=== PATIENT | male | born 1985 ===

== ENCOUNTER 2016-12-13 22:28 | Emergency (ER) | payer SELFPAY ==
--- NOTE | 2016-12-13 23:56 | C.PDOC ---
History Of Present Illness 31 year old male presents to the ED with complaints of developing a pruritic rash to his chest, back, and abdomen a few days ago. Patient states he took Amoxicillin 6 days ago for a sore throat which has since improved. He has no other medical problems and denies fever, cough, vomiting, diarrhea, SOB, chest pain, throat swelling, or any other complaints at this time. Time Seen by Provider: 12/13/16 23:33 Chief Complaint (Nursing): Allergic Reaction History Per: Patient History/Exam Limitations: no limitations Onset/Duration Of Symptoms: Days Current Symptoms Are (Timing): Still Present Severity: Mild Past Medical History Reviewed: Historical Data, Nursing Documentation, Vital Signs Vital Signs: Last Vital Signs Temp 97.7 F 12/14/16 00:22 Pulse 87 12/14/16 00:22 Resp 20 12/14/16 00:22 BP 133/70 12/14/16 00:22 Pulse Ox 99 12/14/16 00:22 - Medical History PMH: No Chronic Diseases Family History: States: Unknown Family Hx - Social History Hx Alcohol Use: Yes Hx Substance Use: No - Immunization History Hx Tetanus Toxoid Vaccination: No Hx Influenza Vaccination: No Hx Pneumococcal Vaccination: No Review Of Systems Except As Marked, All Systems Reviewed And Found Negative. Constitutional: Negative for: Fever, Chills ENT: Negative for: Throat Swelling Respiratory: Negative for: Cough, Shortness of Breath Gastrointestinal: Negative for: Nausea, Vomiting, Diarrhea Skin: Positive for: Rash Physical Exam - Physical Exam Appears: Non-toxic, No Acute Distress Skin: Warm, Dry, Rash (+Diffuse blanchable macular papular rash over the chest, abdomen, and back) Head: Atraumatic, Normacephalic Eye(s): bilateral: Normal Inspection Oral Mucosa: Moist Tongue: Normal Appearing, No Swelling Lips: Normal Appearing, No Swelling Throat: Normal, No Erythema, No Exudate, Other (+uvula midline) Neck: Supple Lymphatic: Other (+Tenderness to the anterior cervical lymphnodes) Chest: Symmetrical Cardiovascular: Rhythm Regular Respiratory: Normal Breath Sounds, No Accessory Muscle Use, No Rales, No Rhonchi , No Wheezing Extremity: Normal ROM Neurological/Psych: Oriented x3, Normal Speech, Normal Cognition ED Course And Treatment O2 Sat by Pulse Oximetry: 97 (Room air) Pulse Ox Interpretation: Normal Medical Decision Making Medical Decision Making: Differential Diagnosis: Allergic reaction vs Drug reaction due to Amoxicillin in setting mono. Contrary to triage, the rash is not petechial. Rx given and patient advised to follow up with his PMD or clinic and return to the ER if symptoms worsen. Disposition - Disposition Referrals: [facility] at [facility] [Outside] Disposition: HOME/ ROUTINE Disposition Time: 12:05 Condition: GOOD Additional Instructions: Please follow up with a primary doctor. The clinic number is provided. Take medication as needed for itching. Return to the ER for any worsening symptoms or for any other concerns. Prescriptions: DiphenhydrAMINE [Benadryl] 25 mg PO Q4H PRN #10 cap PRN Reason: Itching / Pruritus Instructions: Mononucleosis (ED), Acute Rash (ED) Forms: General Discharge Instructions - Clinical Impression Clinical Impression: Rash - Scribe Statement The provider has reviewed the documentation as recorded by the Scribe Kiah Abbott. Provider Attestation: All medical record entries made by the Scribe were at my direction and personally dictated by me. I have reviewed the chart and agree that the record accurately reflects my personal performance of the history, physical exam, medical decision making, and the department course for this patient. I have also personally directed, reviewed, and agree with the discharge instructions and disposition.
[2016-12-14 00:23] VITALS: BP 133/70; PULSE 87; RESP 20; TEMP 97.7
[2016-12-14 13:47] VITALS: O2SAT 97
== END 2016-12-14 00:43 | disposition home or self-care (01) ==
LOC: C.ER 22:28 → SUPCPDRO 22:28 → C.ER 12-14 00:43
DX: R21 Rash and other nonspecific skin eruption (principal)